=== PATIENT | female | born 1930 | race African-American/Black ===

== ENCOUNTER 2019-06-30 22:28 | Inpatient (IN) ==
[2019-06-30 23:07] LABS: Basophils # 0.1 10*3/uL (0.0-0.2); Basophils % 0.8 % (0.0-0.8); Eosinophils # 0.2 10*3/uL (0.0-0.87); Eosinophils % 2.4 % (0.00-10.9); Hematocrit 41.9 VOL% (35.7-47.0); Hemoglobin 13.3 GM/DL (12.0-16.0); Immature Granulocytes % 0.3 %; Immature Granulocytes Absolute 0.02 #; Lymphocytes # 1.7 10*3/uL (1.4-4.0); Lymphocytes % 26.7 % (21.3-54.2); Mean Corpuscular HGB Conc 31.7 GM/DL (32-36); Mean Corpuscular Volume 100.5 FL (87-102); Mean Platelet Volume 11.7 FL (9.6-12.0); Monocytes % 6.9 % (1.7-12.7); Neutrophils % 62.9 % (38.7-73.9); Platelet Count 201 T/CUMM (130-400); Red Blood Count 4.17 MC/CUMM (3.8-5.5); Red Cell Distribution Width 14.2 % (9.3-17.3); White Blood Count 6.3 T/CUMM (4-12)
[2019-06-30] MEDS ORDERED: NITROGLYCERIN 2% OINT 1 INCH/GM PACK TOP STA (23:23)
[2019-06-30] MEDS ORDERED: NITROGLYCERIN 2% OINT 1 INCH/GM PACK TOP ONE (23:25)
[2019-06-30 23:28] LABS: Albumin 3.6 G/DL (3.4-5.0); Bilirubin,Total 1.2 MG/DL (0.2-1.0); Calcium 9.5 MG/DL (8.5-10.1); Osmolality,Calculated 282.4 MOS/KG (273-304); Total Protein 7.1 G/DL (6.4-8.3)
[2019-06-30 23:34] LABS: INR 1.2; PT Patient Result 12.8 SECS (9.8-11.9)
[2019-06-30 23:37] LABS: Partial Thromboplastin Time 122.7 SECS (23.9-33.8)
[2019-07-01] MEDS ORDERED: ALUM/MAG/SIMETH/LIDO VISC 1:1 30 ML BOTTLE PO STA (01:07)
[2019-07-01] MEDS ORDERED: carvediloL 3.125 MG TABLET PO STA (01:12)
[2019-07-01] MEDS ORDERED: GLUCAGON 1 MG VIAL IM PRN (03:02)
[2019-07-01] MEDS ORDERED: ONDANSETRON 4 MG/2 ML VIAL IV PRN (03:02)
[2019-07-01] MEDS ORDERED: DEXTROSE 10% 250 ML BAG IV PRN (03:06)
[2019-07-01] MEDS ORDERED: NITROGLYCERIN DRIP 50 MG/250 ML BOTTLE IV PRN (04:03)
[2019-07-01] MEDS ORDERED: SODIUM CHLORIDE 0.9% 1,000 ML IV SCH ×2 (04:30→10:00)
[2019-07-01 06:18] LABS: Basophils % 0.4 % (0.0-0.8); Eosinophils % 0.5 % (0.00-10.9); Hematocrit 39.8 VOL% (35.7-47.0); Immature Granulocytes % 0.4 %; Immature Granulocytes Absolute 0.02 #; Lymphocytes % 18.3 % (21.3-54.2); Mean Corpuscular HGB Conc 32.7 GM/DL (32-36); Mean Corpuscular Volume 98.8 FL (87-102); Mean Platelet Volume 11.5 FL (9.6-12.0); Monocytes % 6.4 % (1.7-12.7); Platelet Count 200 T/CUMM (130-400); Red Blood Count 4.03 MC/CUMM (3.8-5.5); Red Cell Distribution Width 14.1 % (9.3-17.3); White Blood Count 5.6 T/CUMM (4-12)
[2019-07-01 06:33] LABS: INR 1.1; PT Patient Result 11.5 SECS (9.8-11.9); Partial Thromboplastin Time 29.3 SECS (23.9-33.8)
[2019-07-01 06:44] LABS: Calcium 9.1 MG/DL (8.5-10.1); Osmolality,Calculated 278.5 MOS/KG (273-304); Risk Ratio 2.33; Thyroid Stimulating Hormone 0.597 uIU/ml (0.358-3.74); VLDL CHOLESTEROL 8.6 MG/DL
[2019-07-01] MEDS ORDERED: niCARdipine INJ 25 MG in SODIUM CHLORIDE 0.9% 240 ML IV PRN (06:56)
[2019-07-01] MEDS ORDERED: MORPHINE 4 MG/1 ML VIAL IV ONE (07:15)
[2019-07-01] MEDS ORDERED: MORPHINE 10 MG/1 ML VIAL ONE (07:19)
[2019-07-01] MEDS ORDERED: ASPIRIN 325 MG TABLET PO ONE (07:29)
[2019-07-01] MEDS ORDERED: CLOPIDOGREL 300 MG TABLET PO ONE (07:30)
[2019-07-01] MEDS ORDERED: ENOXAPARIN 60 MG/0.6 ML SYRINGE SUBCUT SCH (07:30)
[2019-07-01] MEDS ORDERED: METOPROLOL TARTRATE 5 MG/5 ML VIAL IV ONE (07:40)
[2019-07-01] MEDS ORDERED: MAGNESIUM SULF RIDER 2 GM in PREMIX 1 EACH IV PRN (07:46)
[2019-07-01] MEDS ORDERED: diphenhydrAMINE CAP 25 MG CAPSULE PO ONE (07:46)
[2019-07-01] MEDS ORDERED: DIAZEPAM 5 MG TABLET PO ONE (07:46)
[2019-07-01] MEDS ORDERED: METOPROLOL TARTRATE 5 MG/5 ML VIAL IV PRN (07:53)
[2019-07-01] MEDS ORDERED: fentaNYL 100 MCG/2 ML VIAL ONE (08:37)
[2019-07-01] MEDS ORDERED: MIDAZOLAM 2 MG/2 ML VIAL ONE (08:37)
[2019-07-01] MEDS ORDERED: ASPIRIN CHEW 81 MG TABLET PO SCH ×2 (09:00)
[2019-07-01] MEDS ORDERED: FUROSEMIDE 40 MG/4 ML VIAL IV ONE (09:03)
[2019-07-01] MEDS ORDERED: HEPARIN/NACL 0.9% 2 UNITS/ML 1,500 ML IV ONE (10:45)
[2019-07-01] MEDS ORDERED: LIDOCAINE 1% 20 ML VIAL ONE (10:45)
[2019-07-01] MEDS: PANTOPRAZOLE 40 MG TABLET PO SCH (11:59)
[2019-07-01 12:30] LABS: Apearance,Urine CLEAR (Clear); Bilirubin,Urine Negative (Negative); Blood, Urine Small mg/dL (Negative); Glucose,Urine (UA) Negative (Negative); Ketones,Urine Negative (Negative); Mucus,Urine Occasional /LPF (Occasional); Nitrite,Urine Negative (Negative); Protein,Urine Negative; RBC,Urine 8 /HPF (0-4); Squamous Epithelial Cell,Urine Occasional /HPF (0-10); Urine Color Yellow (Yellow); Urine Specific Gravity 1.042 (1.001-1.035); Urine Urobilinogen < 2.0 EU/DL (0.2-1.0); WBC,Urine 2 /HPF (0-6)
[2019-07-01] MEDS: METOPROLOL TARTRATE 25 MG TABLET PO SCH ×2 (13:04→21:03)
[2019-07-01] MEDS: METOPROLOL TARTRATE 5 MG/5 ML VIAL IV PRN ×2 (13:16→19:35)
[2019-07-01 16:18] LABS: Troponin I 14.9 NG/ML (0.00-0.045)
[2019-07-01] MEDS ORDERED: carvediloL 3.125 MG TABLET PO SCH (17:00)
[2019-07-01] MEDS ORDERED: ROSUVASTATIN 10 MG TABLET PO SCH (21:00)
[2019-07-01] MEDS: ROSUVASTATIN 20 MG TABLET PO SCH (21:03)
[2019-07-02 06:12] LABS: Basophils % 0.5 % (0.0-0.8); Eosinophils # 0.1 10*3/uL (0.0-0.87); Eosinophils % 1.9 % (0.00-10.9); Hematocrit 42.6 VOL% (35.7-47.0); Hemoglobin 13.9 GM/DL (12.0-16.0); Immature Granulocytes % 0.3 %; Immature Granulocytes Absolute 0.02 #; Lymphocytes # 1.6 10*3/uL (1.4-4.0); Lymphocytes % 24.7 % (21.3-54.2); Mean Corpuscular HGB Conc 32.6 GM/DL (32-36); Mean Corpuscular Volume 96.6 FL (87-102); Mean Platelet Volume 11.7 FL (9.6-12.0); Monocytes % 8.8 % (1.7-12.7); Neutrophils % 63.8 % (38.7-73.9); Platelet Count 186 T/CUMM (130-400); Red Blood Count 4.41 MC/CUMM (3.8-5.5); White Blood Count 6.5 T/CUMM (4-12)
[2019-07-02 06:40] LABS: CKMB % 8.5 %
[2019-07-02 06:42] LABS: Troponin I 13.7 NG/ML (0.00-0.045)
[2019-07-02 07:01] LABS: Calcium 8.6 MG/DL (8.5-10.1); Osmolality,Calculated 273.7 MOS/KG (273-304)
[2019-07-02] MEDS ORDERED: MAGNESIUM SULF RIDER 2 GM in PREMIX 1 EACH IV ONE (07:30)
[2019-07-02] MEDS ORDERED: POTASSIUM CHLORIDE 20 MEQ/15 ML UDCUP PO ONE (07:31)
[2019-07-02] MEDS ORDERED: METOPROLOL TARTRATE 25 MG TABLET PO SCH (09:00)
[2019-07-02] MEDS: DILTIAZEM CD 180 MG CAPSULE PO SCH (09:26)
[2019-07-02] MEDS: ASPIRIN EC 81 MG TABLET PO SCH (09:26)
[2019-07-02] MEDS: CLOPIDOGREL 75 MG TABLET PO SCH (09:27)
[2019-07-02] MEDS: LOSARTAN 25 MG TABLET PO SCH (09:27)
[2019-07-02] MEDS: PANTOPRAZOLE 40 MG TABLET PO SCH (09:27)
[2019-07-02] MEDS: POTASSIUM CHLORIDE RIDER 10 MEQ in PREMIX 1 EACH IV PRN ×2 (11:33→12:28)
[2019-07-02 13:26] LABS: CKMB % 5.2 %
[2019-07-02] MEDS ORDERED: carvediloL 6.25 MG TABLET PO SCH (21:00)
[2019-07-02] MEDS: ROSUVASTATIN 20 MG TABLET PO SCH (22:05)
[2019-07-03 05:26] LABS: Calcium 8.9 MG/DL (8.5-10.1); Osmolality,Calculated 274.8 MOS/KG (273-304)
[2019-07-03] MEDS ORDERED: POTASSIUM CHLORIDE 20 MEQ/15 ML UDCUP PO ONE (07:47)
[2019-07-03] MEDS ORDERED: carvediloL 12.5 MG TABLET PO SCH (07:48)
[2019-07-03] MEDS: CLOPIDOGREL 75 MG TABLET PO SCH (08:10)
[2019-07-03] MEDS: ASPIRIN EC 81 MG TABLET PO SCH (08:10)
[2019-07-03] MEDS: PANTOPRAZOLE 40 MG TABLET PO SCH (08:11)
[2019-07-03] MEDS: DILTIAZEM CD 180 MG CAPSULE PO SCH (08:11)
[2019-07-03] MEDS: LOSARTAN 25 MG TABLET PO SCH (08:11)
[2019-07-03] MEDS ORDERED: ROSUVASTATIN 20 MG TABLET PO SCH (09:00)
[2019-07-03 11:58] VITALS: BP 115/55
[2019-07-03] MEDS ORDERED: DILTIAZEM CD 180 MG CAPSULE PO SCH (21:00)
== END 2019-07-03 15:20 | disposition home or self-care (01) | DRG 247 ==
LOC: N.TELES 22:28 → N.EDINP 22:28 → N.ED 22:28 → OBSVTOIN 07-01 01:05 → N.CLINP 07-01 02:12 → N.TELES 07-01 02:40 → N.CLINP 07-01 05:42 → N.TELES 07-02 10:09
PROVIDERS: ADMIT Internal Medicine Geriatric Medicine; ATTEND Internal Medicine Geriatric Medicine
PROC: CLCCHCL (ICD-10-PCS; 2019-07-01 09:15)